=== PATIENT | male | born 1995 | race Asian ===

== ENCOUNTER 2019-01-29 13:40 | Emergency (ER) | payer MEDICAID ==
[~2019-01-29] VITALS: Ht 172.7 cm; Wt 74.8 kg
[2019-01-29] MEDS ORDERED: NKM (13:51)
[2019-01-29] MEDS ORDERED: Solu-MEDROL 125mg Inj IM ONE (14:45)
--- NOTE | 2019-01-29 14:45 | Emergency Room Report ---
History of Present Illness General Chief Complaint: Skin Rash/Abscess Source: Patient Present Illness HPI 23-year-old male presents to the emergency department complaining of itchy rash that has been progressive x3 days on the torso, groin area, lumbar extremities upper back and neck. Pt. denies fevers, chills, pain or swollen tender lymph nodes. Denies lesions/rashes elsewhere on the body. Denies new medications or body washes or creams. Denies swelling of the lips, tongue , throat or airway. Denies wheezing, or shortness of breath. Denies recent travel, recent illness or ill contacts. denies blisters, oral lesions, or sloughing of the skin. Reports having a similar rash but to a more significant extent approximately 5 years ago which responded well to an injected steroid. Allergies: Coded Allergies: No Known Allergies (Unverified , 01/29/19) Patient History Past Medical History: see triage record Past Surgical History: none Pertinent Family History: none Immunizations: UTD Reviewed Nursing Documentation: PMH: Agreed; PSxH: Agreed Nursing Documentation-PMH Past Medical History: No Stated History Review of Systems All Other Systems: negative except mentioned in HPI Physical Exam Vital Signs Date Time Temp Pulse Resp B/P (MAP) Pulse Ox O2 Delivery O2 Flow Rate FiO2 01/29/19 13:47 97.9 70 18 130/87 (101) 95 Room Air Sp02 EP Interpretation: reviewed, normal General Appearance: no apparent distress, alert, GCS 15, non-toxic Head: normocephalic, atraumatic Eyes: bilateral eye normal inspection, bilateral eye PERRL ENT: hearing grossly normal, normal pharynx, no angioedema, normal voice, other - no stridor Neck: full range of motion Respiratory: chest non-tender, lungs clear, normal breath sounds, no respiratory distress, no accessory muscle use, no wheezing, speaking full sentences Cardiovascular #1: regular rate, rhythm Gastrointestinal: non tender, soft, other - rash- urticarial type blanching erythematous plaques some which coalese, no blisters or vessicles, no targetoid lesions or sloughing of the skin. Musculoskeletal: gait/station normal, normal range of motion, non-tender Neurologic: alert, oriented x3, responsive, motor strength/tone normal, sensory intact, normal gait, speech normal, grossly normal Psychiatric: judgement/insight normal Skin: rash - rash on the Torso, Groin, Sacrum, Bilateral thighs and scant on the anterior neck - urticarial type blanching erythematous plaques some which coalese, no blisters or vessicles, no targetoid lesions or sloughing of the skin. Lymphatic: no adenopathy Medical Decision Making PA Attestation Dr. Olsen is my supervising Physician whom patient management has been discussed with. Diagnostic Impression: Primary Impression: Rash and other nonspecific skin eruption ER Course 23-year-old male presents to the emergency department complaining of itchy rash that has been progressive x3 days on the torso, groin area, lumbar extremities upper back and neck. Pt. denies fevers, chills, pain or swollen tender lymph nodes. Denies lesions/rashes elsewhere on the body. Denies new medications or body washes or creams. Denies swelling of the lips, tongue , throat or airway. Denies wheezing, or shortness of breath. Denies recent travel, recent illness or ill contacts. denies blisters, oral lesions, or sloughing of the skin. Reports having a similar rash but to a more significant extent approximately 5 years ago which responded well to an injected steroid. Ddx considered but are not limited to cellulitis, scabies, shingles, varicella, dermatitis, urticaria, eczema, tinea, viral exanthem, SJS Vital signs: are WNL, pt. is afebrile H&PE are most consistent with URticarial type rash. No evidence of acute impending airway compromise or anaphylaxis. ORDERS: none required at this time, the diagnosis is clinical ED INTERVENTIONS: - Solu-Medrol IM DISCHARGE: At this time pt. is stable for d/c to home. Will provide printed patient care instructions, and any necessary prescriptions. Care plan and follow up instructions have been discussed with the patient prior to discharge. Last Vital Signs Date Time Temp Pulse Resp B/P (MAP) Pulse Ox O2 Delivery O2 Flow Rate FiO2 01/29/19 13:47 97.9 70 18 130/87 (101) 95 Room Air Disposition: HOME, SELF-CARE Condition: Stable Scripts Prednisone* (PREDNISONE*) 20 Mg Tablet 20 MG ORAL DAILY for 4 Days, #4 TAB 0 Refills Prov: Shannon Moralez 01/29/19 Diphenhydramine Hcl (BENADRYL ALLERGY) 25 Mg Tablet 25-50 MG PO Q6HR, #30 TAB Prov: Shannon Moralez 01/29/19 Departure Forms: Return to School Return to School On: Jan 30, 2019 Other School Release Restrictions: Please excuse for 01/29/19. Return to Full Activity: Jan 30, 2019 Patient Instructions: Rash Additional Instructions: Take medications as directed. 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 --Please review list of primary care clinics, if you do not already have a primary care provider Return sooner to ED if new symptoms occur, or current symptoms become worse. Do not drink alcohol, drive, or operate heavy machinery while taking Benadryl as this may cause drowsiness. - Please note that this Emergency Department Report was dictated using [employer] purification chemist technology software, occasionally this can lead to erroneous entry secondary to interpretation by the dictation equipment. Shannon Moralez Jan 29, 2019 14:45
[2019-01-29] MEDS ORDERED: BENADRYL ALLERG25 M1 PO (14:46)
[2019-01-29] MEDS ORDERED: PREDNISONE20 MG ORAL (14:46)
[2019-01-29] MEDS ORDERED: Solu-MEDROL 125mg Inj ONE (15:29)
[2019-01-29 16:18] VITALS: BP 120/81
--- NOTE | 2019-01-29 16:22 | NUR ---
ED Nurse Note: Patient nursed in room bed 2 rash and hives present to the torso and the upper arms, redness to the neck and the forehead. Patient advises that the hivers to the upper left arm are new onset since arrival. IM medication given as presecribed. PA advised of the new hives to the upper arm. Spoke with triage nurse whom advises that the redness was not present to the torso on arrival. Patient denies shortness of breath, no audible wheezing, no tongue or lip swelling, no shortness of breath. Further medications to be prescribed.
[2019-01-29] MEDS ORDERED: DiphenhydrAMINE 50mg/ml Inj IM ONE (16:30)
--- NOTE | 2019-01-29 17:08 | NUR ---
ED Nurse Note: Patient rash rexaminaed. Redness appears to be subsiding and rash mopre smooth than raised. Hower rash still present to torso - widespread and the upper arms with a few small hives to the upper arms and forearms. No mouth swelling or throat swelling and no EMIL. No wheezing. Vitals rechecked.
[2019-01-29 17:09] VITALS: BP 121/80
--- NOTE | 2019-01-29 18:47 | NUR ---
ER DISCHARGE NOTE: Patient is cleared to be discharged per ERMD, pt is aox4, on room air, with stable vital signs. pt was given dc and prescription instructions, pt was able to verbalize understanding, pt id band removed. pt is able to ambulate with steady gait. pt took all belongings. Patient advised not to drive due to effects of medications.
[2019-01-29 18:49] VITALS: BP 121/80
== END 2019-01-29 18:49 | disposition home or self-care (01) ==
LOC: EMR 14:20
DX: R21 Rash and other nonspecific skin eruption (principal)
CPT/HCPCS: 96372; J1200; J2930; Z7502; 99283